=== PATIENT | male | born 1950 | race Caucasian/White ===

== ENCOUNTER 2022-09-12 12:21 | Outpatient (CLI) | payer MEDICARE, OTHER ==
[~2022-09-12] VITALS: Ht 180.3 cm; Wt 109.0 kg
[~2022-09-12 12:21] MED LIST: CRESTOR40 MG PO; NORVASC 10MG10 MG PO; PREDNISONE10 MG PO; PROAIR HFA0.09 MG/AC IH; SINGULAIR 110 MG/TAB PO; ZESTRIL 20MG TA20 MG PO
[2022-09-12 12:52] VITALS: BP 143/83; PULSE 82; TEMP 97.9
== END 2022-09-12 16:46 | disposition home or self-care (01) ==
LOC: EUO 12:21
DX: J31.0 Chronic rhinitis (principal); J33.9 Nasal polyp, unspecified
CPT/HCPCS: J2182

== ENCOUNTER 2023-05-18 07:23 | Emergency (ER) | payer MEDICARE, OTHER ==
[~2023-05-18] VITALS: Ht 180.3 cm; Wt 104.5 kg
[~2023-05-18 07:23] MED LIST changes: +NUCALA100 MG/1 M SQ
[2023-05-18 07:30] VITALS: BP 176/92
[2023-05-18] MEDS ORDERED: PROAIR HFA0.09 MG/AC IH (07:41)
[2023-05-18] MEDS ORDERED: PREDNISONE50 MG PO (07:41)
[2023-05-18 08:15] VITALS: PULSE 98; TEMP 97.7
== END 2023-05-18 08:21 | disposition home or self-care (01) ==
LOC: COL.ER 07:23
DX: J40 Bronchitis, not specified as acute or chronic (principal); Z20.822 Contact with and (suspected) exposure to COVID-19